=== PATIENT | female | born 1970 | race African-American/Black ===

== ENCOUNTER 2017-01-19 19:02 | Emergency (ER) | payer MEDICARE, OTHER ==
--- NOTE | ~2017-01-19 | EKG ---
PATIENT: SHAUNA ARZATE UNIT #: [id number] Ventricular Rate: 69 BPM Atrial Rate: 69 BPM P-R Interval: 132 ms QRS Duration: 76 ms Q-T Interval: 432 ms QTC Calculation(Bezet): 462 ms P [place]: 82 degrees Calculated R [place]: 68 degrees Calculated T [place]: 52 degrees Diagnosis Line: Normal sinus rhythm Diagnosis Line: Low voltage QRS Diagnosis Line: Borderline ECG Diagnosis Line: When compared with ECG of 19-JAN-2017 20:45, Diagnosis Line: (unconfirmed) Diagnosis Line: No significant change was found Diagnosis Line: Confirmed by VINCE HUBBARD MD ([id number]) on 01/20/2017 Diagnosis Line: 7:40:57 AM INTERPRETING MD: HAYDEE KENNEY
[~2017-01-19 19:02] MED LIST: ACCOLATE20 MG PO; ADVAIR INH; ASPIRINEC PO; B/P MED; COMBIVENT MININEB INH; DOLOBID500 MG PO; FAMOTIDINE PO; FERRO-TIME325 MG PO; FLOVENT HFA12 GM INH; IBUPROFEN PO; METFORMIN PO; NO HOME MEDS; PHENERGAN W/CO120 ML PO; PROTONIX PO; VOLMAX4 MG PO; VOLTAREN75 MG PO
[2017-01-19 20:15] LABS: BASOPHIL% 0.6 % (0-2.5); EOSINOPHIL# 0.2 X10e3 (0-0.7); EOSINOPHIL% 3.8 % (0.0-7.0); HEMATOCRIT 36.7 % (35.0-45.0); HEMOGLOBIN 11.3 gm/dL (12.0-16.0); LYMPHOCYTE# 1.3 X10e3 (1.0-3.5); LYMPHOCYTE% 26.1 % (17.0-45.0); MEAN CELL VOLUME 79.8 FL (83-96); MEAN CORPUSCULAR HEMOGLOBIN 24.6 PG (28-34); MEAN CORPUSCULAR HGB CONC 30.8 g/dL (30-36); MEAN PLATELET VOLUME 9.6 FL (6.5-11.5); MONOCYTE# 0.4 X10e3 (0-1.0); MONOCYTE% 7.8 % (3.0-12.0); NEUTROPHIL# 3.1 X10e3 (1.5-7.1); NEUTROPHIL% 61.7 % (40-75); PLATELET COUNT 187 X10e3 (140-420); RED CELL DISTRIBUTION WIDTH 16.9 % (11.0-15.5)
[2017-01-19 20:16] LABS: DIFF IND NO
[2017-01-19 20:39] LABS: ALBUMIN SERUM 3.9 g/dL (3.5-5.0); BILIRUBIN, DIRECT 0.1 mg/dL (0.0-0.2); BILIRUBIN,INDIRECT 0.3 mg/dL (0.0-0.9); BILIRUBIN,TOTAL 0.4 mg/dL (0.2-2.0); CALCIUM SERUM 8.4 mg/dL (8.4-10.2); CREATININE SERUM 0.6 mg/dL (0.6-1.4); GLOM FILT RATE Estimated 125.8 mL/min (>60); POTASSIUM 3.9 mmol/L (3.5-5.1); PROTEIN TOTAL SERUM 7.4 g/dL (6.0-8.3)
[2017-01-19 21:30] LABS: POC - CKMB <1.0 ng/mL (0.0-7.9); POC - TROPONIN <0.05 ng/mL (<=0.05)
[2017-01-19 22:19] LABS: URINE SOURCE CLEAN CATCH
[2017-01-19 22:47] LABS: URINE APPEARANCE CLEAR; URINE BILIRUBIN NEG (NEG); URINE BLOOD NEG (NEG); URINE COLOR YELLOW; URINE GLUCOSE NEG (NEG); URINE KETONE NEG (NEG); URINE LEUKOCYTE ESTERASE 2+ (NEG); URINE NITRATE NEG (NEG); URINE PROTEIN NEG (NEG); URINE SPECIFIC GRAVITY 1.022 (1.003-1.035)
[2017-01-19 22:53] LABS: CULTURE INDICATED? YES; URINE BACTERIA AUWI 1+ (NEGATIVE); URINE SQUAMOUS EPITHELIAL CELL OCC /[HPF]
== END 2017-01-19 22:25 | disposition home or self-care (01) ==
LOC: CED 19:02
PROVIDERS: Emergency Medicine
DX: R10.13 Epigastric pain (principal); J45.909 Unspecified asthma, uncomplicated; Z90.49 Acquired absence of other specified parts of digestive tract; I10 Essential (primary) hypertension; Z88.0 Allergy status to penicillin; Z88.8 Allergy status to other drugs, medicaments and biological substances
CPT/HCPCS: 36415; 80048; 80076; 81003; 82553; 83690; 84484; 84703; 85025; 87086; 93005; 99284